=== PATIENT | female | born 1995 | race Caucasian/White ===

== ENCOUNTER 2021-03-07 11:21 | Emergency (ER) | payer OTHER, MEDICAID ==
[~2021-03-07] VITALS: Ht 157.5 cm; Wt 71.7 kg
[2021-03-07 11:35] VITALS: BP_SYST 140
[2021-03-07 13:46] LABS: BILIRUBIN,URINE NEGATIVE (NEGATIVE); BLOOD, URINE 3+ (NEGATIVE); CLARITY/URINE SL CLOUDY (CLEAR); COLOR,URINE YELLOW (YELLOW); GLUCOSE,URINE NEGATIVE (NEGATIVE); KETONES,URINE 1+ (NEGATIVE); LEUKOCYTE ESTERASE ,URINE TRACE (NEGATIVE); NITRITE, URINE NEGATIVE (NEGATIVE); PROTEIN URINE NEGATIVE (NEGATIVE); UROBILINOGEN,URINE 0.2 (0.2-1.0)
[2021-03-07 14:05] LABS: BACTERIA,URINE FEW /HPF (None Seen)
[2021-03-07 14:15] LABS: BASOPHILS % (AUTO) 0.7 % (0.0-2.0); EOSINOPHILS % (AUTO) 0.5 % (0.0-4.0); HEMOGLOBIN 11.9 g/dL (12.0-16.0); LYMPHOCYTES # (AUTO) 1.6 K/uL (1.0-5.5); LYMPHOCYTES % (AUTO) 24.5 % (20.5-51.5); MEAN CORPUSCULAR HEMOGLOBIN 27 pg (27-31); MEAN CORPUSCULAR HGB CONC 33 % (32-36); MEAN CORPUSCULAR VOLUME 83 fL (79.0-98.0); MONOCYTES # (AUTO) 0.4 K/uL (0.0-1.0); MONOCYTES % (AUTO) 6.7 % (1.7-9.3); NEUTROPHILS # (AUTO) 4.5 K/uL (1.8-7.7); NEUTROPHILS % (AUTO) 67.6 % (40.0-70.0); PLATELET COUNT (AUTO) 288 K/uL (130-430); RED BLOOD CELL COUNT(AUTO) 4.35 MIL/uL (4.2-6.2); RED CELL DISTRIBUTION WIDTH 17.5 % (9.0-15.0); WHITE BLOOD COUNT (AUTO) 6.6 K/uL (4.8-10.8)
[2021-03-07 14:41] LABS: INR 0.9 (0.8-1.2); PROTHROMBIN TIME 9.9 SECS (9.5-12.5)
[2021-03-07 15:47] VITALS: BP_SYST 117
== END 2021-03-07 15:48 | disposition home or self-care (01) ==
LOC: SED 11:21
DX: O20.9 Hemorrhage in early pregnancy, unspecified (principal); Z3A.01 Less than 8 weeks gestation of pregnancy
CPT/HCPCS: 36415; 76801; 76817; 81000; 81025; 84702; 85025; 85610-TC; 85730-TC; 86900; 86901; 87086; 99284

== ENCOUNTER 2021-03-09 10:26 | Emergency (ER) | payer OTHER, MEDICAID ==
[~2021-03-09] VITALS: Ht 157.5 cm; Wt 68.9 kg
[2021-03-09 10:26] VITALS: BP_SYST 131
--- NOTE | 2021-03-09 10:26 | NUR ---
Patient triaged and placed in waiting room. VSS and patient appears in no acute distress at this time. Accompanied by SELF, awaiting available bed, and MD notified of need for MSE.
--- NOTE | 2021-03-09 11:40 | NUR ---
LABS HAVE BEEN DRAWN AND ULTRASOUND ORDERED. AWAITING LAB RESULTS
--- NOTE | 2021-03-09 13:12 | NUR ---
DR REQUESTING TO SPEAK WITH GROUNDSMAN OB DR, CALL PLACED TO DR ANN AND DR HILLIARD SPEAKING WITH HIM.
--- NOTE | 2021-03-09 13:19 | NUR ---
DR HILLIARD SPEAKING WITH PT IN TRIAGE ROOM, REGARDING TEST RESULTS
--- NOTE | 2021-03-09 13:40 | NUR ---
EXPLAINED TO PT IN DETAIL ABOUT S/S OF AN ECTOPIC . PT STATES SHE UNDERSTANDS BUT IS SCARED, REASSURED PT. PT GIVEN DR RAHMAN PHONE NUMBER AND EXPLAINED TO FOLLOW UP WITH DR ANN Wednesday
--- NOTE | 2021-03-09 13:44 | NUR ---
Patient given written and verbal discharge instructions and verbalizes understanding. ER MD discussed with patient the results and treatment provided. Patient in stable condition. ID arm band removed. Rx of NONE given. Patient educated on pain management and to follow up with PMD. Pain Scale 0/10. Opportunity for questions provided and answered. Medication side effect fact sheet provided.
[2021-03-09 13:45] VITALS: BP_SYST 127
== END 2021-03-09 13:44 | disposition home or self-care (01) ==
LOC: SED 10:26
DX: O20.0 Threatened abortion (principal); Z3A.01 Less than 8 weeks gestation of pregnancy; Z79.899 Other long term (current) drug therapy
CPT/HCPCS: 36415; 76801; 76817; 84702; 99284